=== PATIENT | female | born 1950 ===

== ENCOUNTER 2020-02-01 13:36 | Outpatient (CLI) | payer BC, MEDICARE ==
[~2020-02-01 13:36] MED LIST: LEVO112T2
== END 2020-02-01 23:59 | disposition home or self-care (01) ==
LOC: CVU 13:36
PROVIDERS: ATTEND Internal Medicine Cardiovascular Disease
DX: I65.23 Occlusion and stenosis of bilateral carotid arteries (principal); R42 Dizziness and giddiness; R55 Syncope and collapse
CPT/HCPCS: 93306; 93880

== ENCOUNTER 2020-09-20 11:07 | Outpatient (CLI) | payer MEDICARE | END 2020-09-20 23:59 | disposition home or self-care (01) | LOC: CFH 11:07 | PROVIDERS: ATTEND Nurse Practitioner Family | DX: M81.0 Age-related osteoporosis without current pathological fracture (principal) | CPT/HCPCS: 77080 ==